=== PATIENT | female | born 1975 | race Caucasian/White ===

== ENCOUNTER 2023-06-25 08:23 | Inpatient (IN) | payer BC ==
[2023-06-25] MEDS ORDERED: MORPHINE 4 MG/ML SYR ONE ×2 (08:49→10:57)
[2023-06-25] MEDS ORDERED: ONDANSETRON 4 MG/2 ML VIAL ONE ×3 (08:49→21:33)
[2023-06-25] MEDS ORDERED: NA CHLORIDE 0.9% 1,000 ML ONE ×2 (08:49→10:11)
[2023-06-25 09:02] LABS: Absolute Lymphocytes (CBC) 0.9 K/uL (0.7-4.9); Hematocrit 41.6 % (36.0-45.0); Lymphocytes % 4.5 % (15.3-44.8); MCV 78.6 fL (80-100); MPV 8.3 fL (7.6-11.3); RBC Red Blood Cell Count 5.29 M/uL (3.86-4.86)
[2023-06-25 09:22] LABS: Bilirubin Total 0.6 mg/dL (0.2-1.0); Potassium 3.7 mEq/L (3.5-5.1); Protein, Total 8.3 g/dL (6.4-8.2)
--- NOTE | 2023-06-25 09:29 | RAD REPORT ---
EXAM DESCRIPTION: CT - Stone Protocol - 06/25/2023 8:56 am CLINICAL HISTORY: Flank pain. FLANK PAIN COMPARISON: No comparisons TECHNIQUE: Axial images were obtained without oral or IV contrast. Lack of contrast limits solid org an and vascular assessment. The [id number] spans the entirety of the system partially obscuring uppermost abdomen and lung bases. Coronal reformatted images were obtained and reviewed. All CT scans are performed using dose optimization technique as appropriate and may include automated exposure control or mA/KV adjustment according to patient size. FINDINGS: The lower lung fay are clear. Imaged portions of the liver and spleen show no suspicious findings on non-contrast imaging. The panc reas and adrenal glands are normal. No pathologic lymphadenopathy in the abdomen or pelvis. 5 mm stone is present at the right UVJ resulting in moderate right hydronephrosis and hydroureter. Ad ditional small calculus inferior calyx right kidney. There is a large left renal pelvis stone present measuring 19 mm. Mild left hydronephrosis. No bowel obstruction, free air, free fluid or abscess. Normal appendix noted. No significant bony abnormality. IMPRESSION: 5 mm stone right UVJ with moderate right hydronephrosis. 19 mm stone left renal pelvis resulting in mild left hydronephrosis.
[2023-06-25 09:48] LABS: Blood Morphology Comment NOT SEEN (NOT SEEN); Platelet Estimate ADEQ; White Blood Cell Scan OK (OK)
[2023-06-25 10:22] LABS: Specific Gravity 1.013 (1.005-1.030)
[2023-06-25 11:22] LABS: Specific Gravity 1.013 (1.005-1.030); Urine Bacteria >50 /HPF (<20); Urine Bilirubin NEGATIVE (Negative); Urine Blood 3+ (OVER) (Negative); Urine Clarity Extremely Turbid (Clear); Urine Color Light-Orange (Yellow); Urine Glucose NEGATIVE (Negative); Urine Mucus Slight /HPF (None Seen); Urine Protein 2+ (Negative); Urine RBC >50 /HPF (None Seen); Urine Urobilinogen Normal (Normal)
[2023-06-25] MEDS ORDERED: CEFTRIAXONE 1000 MG/VIAL ONE ×2 (11:44→22:40)
--- NOTE | 2023-06-25 12:00 | ER ---
Nurse's Notes [facility] Name: Misael Agudelo Age: 47 yrs Sex: Female : 1975 Arrival Date: 06/25/2023 Time: 08:23 Bed 13 Private MD: Diagnosis: UTI/ Urinary tract infection, site not specified;Hydronephrosis with renal and ureteral calculous obstruction Presentation: 06/25 08:32 Chief complaint: Patient states: right flank pain since yesterday, + hx of kidney iw stones, +vomiting. Coronavirus screen: At this time, the client does not indicate any symptoms associated with coronavirus-19. Ebola Screen: Patient negative for fever greater than or equal to 101.5 degrees Fahrenheit, and additional compatible Ebola Virus Disease symptoms Patient denies exposure to infectious person. Patient denies travel to an Ebola-affected area in the 21 days before illness onset. No symptoms or risks identified at this time. Initial Sepsis Screen: Does the patient meet any 2 criteria? No. Patient's initial sepsis screen is negative. Does the patient have a suspected source of infection? No. Patient's initial sepsis screen is negative. Risk Assessment: Do you want to hurt yourself or someone else? Patient reports no desire to harm self or others. Onset of symptoms was June 24, 2023. 08:32 Method Of Arrival: Ambulatory iw 08:32 Acuity: MAURO 3 iw Triage Assessment: 09:06 General: Appears uncomfortable, Behavior is cooperative, appropriate for age, anxious. bp Pain: Complains of pain in right flank. EENT: No deficits noted. Neuro: No deficits noted. Cardiovascular: No deficits noted. Respiratory: No deficits noted. GI: No signs and/or symptoms were reported involving the gastrointestinal system. : Reports pain in right flank(s). Derm: No deficits noted. Musculoskeletal: No deficits noted. Historical: - Allergies: 08:34 No Known Allergies; iw - Home Meds: 08:34 None [Active]; iw - PMHx: 08:34 None; iw - PSHx: 08:34 section; iw - Immunization history:: Client reports receiving the 2nd dose of the Covid vaccine. - Social history:: Smoking status: Patient denies any tobacco usage or history of. Screenin:06 [facility] ED Fall Risk Assessment (Adult) History of falling in the last 3 months, bp including since admission No falls in past 3 months (0 pts). Abuse screen: Denies threats or abuse. Denies injuries from another. Nutritional screening: No deficits noted. Tuberculosis screening: No symptoms or risk factors identified. Assessment: 09:06 General: SEE TRIAGE NOTE. bp 09:58 Reassessment: Patient appears in no apparent distress at this time. Patient is alert, bp oriented x 3, equal unlabored respirations, skin warm/dry/pink. 11:44 Reassessment: No changes from previously documented assessment. Patient is alert, bp oriented x 3, equal unlabored respirations, skin warm/dry/pink. 13:46 Reassessment: Patient appears in no apparent distress at this time. Patient is alert, bp oriented x 3, equal unlabored respirations, skin warm/dry/pink. Vital Signs: 08:34 BP 149 / 98; Pulse 90; Resp 16; Temp 98.2; Pulse Ox 99% ; Weight 81.65 kg; Height 5 ft. iw 3 in. ; Pain 6/10; 09:58 BP 145 / 80; Pulse 83; Resp 16; Pulse Ox 99% ; bp 10:59 Pulse 75; Resp 16; Pulse Ox 97% ; bp 13:00 BP 120 / 86; Pulse 86; Resp 16; Pulse Ox 97% ; bp 08:34 Body Mass Index 31.89 (81.65 kg, 160.02 cm) iw 08:34 Pain Scale: Adult iw ED Course: 08:23 Patient arrived in ED. im 08:25 Enio Tanner, TACO is PHCP. pm1 08:25 Steven English DO is Attending Physician. pm1 08:34 Triage completed. iw 08:34 Arm band placed on. iw 08:42 Haris Simeon, RN is Primary Nurse. bp 08:50 CBC with Diff Sent. aw1 08:50 CMP Sent. aw1 08:50 Lipase Sent. aw1 08:50 Inserted saline lock: 22 gauge in right forearm, using aseptic technique. aw1 08:57 CT Stone Protocol In Process Unspecified. EDMS 09:06 Patient has correct armband on for positive identification. Bed in low position. Call bp light in reach. Side rails up X2. Adult w/ patient. 10:19 Urine collected: clean catch specimen, kim colored. aw1 11:58 Brad Segura MD is Hospitalizing Provider. pm1 15:55 No provider procedures requiring assistance completed. Patient admitted, IV remains in bp place. Administered Medications: 08:54 Drug: NS 0.9% IV 1000 ml Route: IV; Rate: 1 bolus; Site: right forearm; bp 10:49 Follow up: IV Status: Completed infusion; IV Intake: 1000ml bp 08:55 Drug: Ondansetron IVP 4 mg Route: IVP; Site: right forearm; bp 10:49 Follow up: Response: No adverse reaction bp 08:55 Drug: morphine IVP or IV 2 mg Route: IVP; Infused Over: 4 mins; Site: right forearm; bp 10:49 Follow up: Response: No adverse reaction bp 10:07 Drug: NS 0.9% IV 1000 ml Route: IV; Rate: 1000 ml; Site: right forearm; bp 10:49 Drug: morphine IVP or IV 4 mg Route: IVP; Infused Over: 4 mins; Site: right forearm; bp 11:33 Drug: Ondansetron IVP 4 mg Route: IVP; Site: right forearm; bp 11:39 Drug: Rocephin IV 1 grams Route: IV; Rate: calculated rate; Site: right forearm; bp Medication: 09:06 VIS not applicable for this client. bp Intake: 10:49 IV: 1000ml; Total: 1000ml. bp Outcome: 12:00 Decision to Hospitalize by Provider. pm1 15:55 Admitted to Med/surg accompanied by tech, family with patient, via wheelchair, room bp 230, with chart, Report called to MOSES SHAFER 15:55 Condition: stable 15:55 Instructed on the need for admit. 16:33 Patient left the ED. iw Signatures: Dispatcher [employer] EDMS Alia Jimenez RN RN iw Enio Tanner, TRACING LATHE SET UP OPERATOR TRACING LATHE SET UP OPERATOR pm1 Haris Simeon RN RN bp Ellyn Echols Alyssa aw1 Corrections: (The following items were deleted from the chart) 08:53 08:50 Inserted saline lock: 20 gauge in right forearm, using aseptic technique. aw1 aw1
--- NOTE | 2023-06-25 12:00 | EDPHYS ---
Physician Documentation [facility] Name: Misael Agudelo Age: 47 yrs Sex: Female : 1975 Arrival Date: 06/25/2023 Time: 08:23 Bed 13 Private MD: ED Physician Steven English HPI: 06/25 08:33 This 47 yrs old Female presents to ER via Unassigned with complaints of Low Back Pain - pm1 kidney stones. 08:33 The patient presents with pain that is acute, with no known mechanism of injury. The pm1 symptoms are located in the low back, right flank. The pain radiates to the right lower abdomen. The problem was sustained Similar to prior kidney stones in the past. Onset: The symptoms/episode began/occurred last night. Modifying factors: The patient symptoms are alleviated by nothing, the patient symptoms are aggravated by nothing. Associated signs and symptoms: Pertinent positives: hematuria, nausea. Severity of symptoms: in the emergency department the symptoms are actually worse. The patient has experienced similar episodes in the past, today's symptoms are similar, to previous kidney stones. The patient has not recently seen a physician. Historical: - Allergies: 08:34 No Known Allergies; iw - Home Meds: 08:34 None [Active]; iw - PMHx: 08:34 None; iw - PSHx: 08:34 section; iw - Immunization history:: Client reports receiving the 2nd dose of the Covid vaccine. - Social history:: Smoking status: Patient denies any tobacco usage or history of. ROS: 08:33 Constitutional: Negative for fever, chills, and weight loss, Cardiovascular: Negative pm1 for chest pain, palpitations, and edema, Respiratory: Negative for shortness of breath, cough, wheezing, and pleuritic chest pain. 08:33 MS/Extremity: Negative for injury and deformity, Skin: Negative for injury, rash, and discoloration, Neuro: Negative for headache, weakness, numbness, tingling, and seizure. 08:33 Abdomen/GI: Positive for nausea. 08:33 Back: Positive for flank pain, on the right. 08:33 : Positive for hematuria. 08:33 All other systems are negative. Exam: 08:33 Constitutional: This is a well developed, well nourished patient who is awake, alert, pm1 and in no acute distress. Head/Face: Normocephalic, atraumatic. 08:33 Skin: Warm, dry with normal turgor. Normal color with no rashes, no lesions, and no evidence of cellulitis. MS/ Extremity: Pulses equal, no cyanosis. Neurovascular intact. Full, normal range of motion. 08:33 Cardiovascular: Exam negative for acute changes. 08:33 Respiratory: Exam negative for acute changes, respiratory distress, shortness of breath. 08:33 Abdomen/GI: Exam negative for acute changes. 08:33 Back: CVA tenderness, is noted on the right. 08:33 Neuro: Exam negative for acute changes, Orientation: is normal, Mentation: is normal, Gait: is steady, at a normal pace, without difficulty. Vital Signs: 08:34 BP 149 / 98; Pulse 90; Resp 16; Temp 98.2; Pulse Ox 99% ; Weight 81.65 kg; Height 5 ft. iw 3 in. ; Pain 6/10; 09:58 BP 145 / 80; Pulse 83; Resp 16; Pulse Ox 99% ; bp 10:59 Pulse 75; Resp 16; Pulse Ox 97% ; bp 13:00 BP 120 / 86; Pulse 86; Resp 16; Pulse Ox 97% ; bp 08:34 Body Mass Index 31.89 (81.65 kg, 160.02 cm) iw 08:34 Pain Scale: Adult iw MDM: 08:26 Patient medically screened. pm1 08:37 Data reviewed: vital signs. pm1 08:37 I considered the following discharge prescriptions or medication management in the pm1 emergency department Medications were administered in the Emergency Department. See JAN. 10:10 ED course: Patient's pain well controlled. Pending IV fluid administration and pm1 urinalysis prior to disposition. 11:43 Counseling: I had a detailed discussion with the patient and/or guardian regarding: the pm1 historical points, exam findings, and any diagnostic results supporting the discharge/admit diagnosis, lab results, radiology results, the need for further work-up and treatment in the hospital. 11:56 Management of patient was discussed with the following: Director Drug: Dr Roth. Will pm1 see patient. Would like EKG, NPO, IV fluids and Antibiotics. Admit to the hospitalist. 11:56 Differential diagnosis: ureteral calculous, renal calculous, UTI, appendicitis. pm1 12:05 Management of patient was discussed with the following: Hospitalist: Colton NOVA. Will see pm1 the patient. 06/25 08:33 Order name: CBC with Diff; Complete Time: 09:53 pm1 06/25 08:33 Order name: CMP; Complete Time: 09:30 pm1 06/25 08:33 Order name: Lipase; Complete Time: 09:30 pm1 06/25 08:33 Order name: Test, Urine; Complete Time: 10:30 pm06/25 08:33 Order name: Urinalysis w/ reflexes; Complete Time: 11:24 pm1 06/25 09:06 Order name: CBC Smear Scan; Complete Time: 09:53 EDID 06/25 11:25 Order name: Urine Culture EDID 06/25 12:31 Order name: CBC with Automated Diff [facility] 06/25 12:31 Order name: CBC with Automated Diff [facility] 06/25 12:31 Order name: Comprehensive Metabolic Panel [facility] 06/25 12:31 Order name: Comprehensive Metabolic Panel [facility] 06/25 12:31 Order name: Magnesium [facility] 06/25 12:31 Order name: Magnesium EDID 06/25 12:31 Order name: Phosphorus EDID 06/25 12:31 Order name: Phosphorus [facility] 06/25 08:33 Order name: CT Stone Protocol; Complete Time: 09:30 pm1 06/25 12:31 Order name: CONS Physician Consult [facility] 06/25 12:31 Order name: NPO [facility] 06/25 13:13 Order name: EKG; Complete Time: 13:14 pm06/25 08:33 Order name: IV Saline Lock; Complete Time: 08:50 pm06/25 08:33 Order name: Labs collected and sent; Complete Time: 08:50 pm06/25 13:13 Order name: EKG - Nurse/Tech; Complete Time: 14:02 pm1 EC:34 Rate is 84 beats/min. Rhythm is regular, Normal Sinus Rhythm. QRS [place] is Normal. GA pm1 interval is normal. QRS interval is normal. QT interval is normal. No Q waves. T waves are Normal. No ST changes noted. Clinical impression: Normal ECG. Administered Medications: 08:54 Drug: NS 0.9% IV 1000 ml Route: IV; Rate: 1 bolus; Site: right forearm; bp 10:49 Follow up: IV Status: Completed infusion; IV Intake: 1000ml bp 08:55 Drug: Ondansetron IVP 4 mg Route: IVP; Site: right forearm; bp 10:49 Follow up: Response: No adverse reaction bp 08:55 Drug: morphine IVP or IV 2 mg Route: IVP; Infused Over: 4 mins; Site: right forearm; bp 10:49 Follow up: Response: No adverse reaction bp 10:07 Drug: NS 0.9% IV 1000 ml Route: IV; Rate: 1000 ml; Site: right forearm; bp 10:49 Drug: morphine IVP or IV 4 mg Route: IVP; Infused Over: 4 mins; Site: right forearm; bp 11:33 Drug: Ondansetron IVP 4 mg Route: IVP; Site: right forearm; bp 11:39 Drug: Rocephin IV 1 grams Route: IV; Rate: calculated rate; Site: right forearm; bp Disposition: 09:47 PA/OPERATING ROOM TECH's history reviewed, patient interviewed, and examined. HPI: 47-year-old female ms3 presents for right-sided flank pain that began yesterday. Patient rates her pain a 6/10 patient endorses nausea and vomiting. Patient denies alleviating or inciting factors. My personal exam of patient reveals: On exam patient is alert and orient x4, no apparent distress, nontoxic-appearing. Heart rate and rhythm are regular without murmurs rubs or gallops. Lungs are clear to auscultation bilaterally. Abdomen is nontender to palpation with bowel sounds present. Skin is dry and without rashes. Disposition Summary: 06/25/23 12:00 Hospitalization Ordered Hospitalization Status: Inpatient Admission pm1 Provider: Brad Segura pm1 Location: Telemetry/MedSurg (Inpatient) pm1 Condition: Stable pm1 Problem: new pm1 Symptoms: have improved pm1 Bed/Room Type: Standard pm1 Room Assignment: 230(06/25/23 15:05) dw Diagnosis - UTI/ Urinary tract infection, site not specified pm1 - Hydronephrosis with renal and ureteral calculous obstruction pm1 Forms: - Medication Reconciliation Form pm1 - SBAR form pm1 Signatures: Dispatcher [employer] Marylu Rodriguez RN RN dw Williams, Irene, RN RN iw Marinas, Patrick, NP OPERATING ROOM TECH pm1 Haris Simeon, RN RN bp Steven English, DO ms3 Corrections: (The following items were deleted from the chart) 11:56 11:43 Management of patient was discussed with the following: Director Drug: Dr Roth. pm1 Will see patient. Would like EKG, NPO, IV fluids and Antibiotics. Admit to the hospitalist. pm1 15:05 12:00 pm1 dw
[2023-06-25] MEDS ORDERED: ONDANSETRON 4 MG/2 ML VIAL IV PRN (12:25)
[2023-06-25] MEDS ORDERED: ACETAMINOPHEN 500 MG TAB PO PRN (12:25)
[2023-06-25] MEDS ORDERED: HYDROMORPHONE HCL 0.5 MG/0.5 ML INJ IV PRN (12:37)
[2023-06-25] MEDS: Ringers Lactate 1,000 ML IV SCH ×2 (13:00→23:00)
[2023-06-25 16:39] VITALS: BMI 36.4
[2023-06-25] MEDS: HYDROCODONE/APAP 7.5/325 MG TAB PO PRN (16:50)
[2023-06-25] MEDS ORDERED: CEFAZOLIN 1 GM in NA CHLORIDE 0.9% 50 ML IVPB SCH (17:00)
[2023-06-25] MEDS ORDERED: ACETAMINOPHEN 500 MG TAB PO ONE (17:17)
[2023-06-25] MEDS ORDERED: NA CHLORIDE 0.9% 500 ML IV ONE (19:26)
[2023-06-25] MEDS ORDERED: NA CHLORIDE 0.9% 500 ML ONE (19:45)
[2023-06-25] MEDS ORDERED: NACHLORIDE 0.45% 1,000 ML IV ONE (19:45)
[2023-06-25] MEDS ORDERED: SODIUM BICARB 50 MEQ/50ML VIAL ONE (19:47)
[2023-06-25] MEDS: NACHLORIDE 0.45% 1,000 ML with NA BICARB 8.4% 50 MEQ IV SCH ×2 (20:36)
--- NOTE | 2023-06-25 20:53 | P.CNS ---
Date of Consult: 06/25/23 Reason for Consult: bilateral ureteral obstruction Requesting Physician: Steven English Chief Complaint: Right flank pain History of Present Illness: 47-year-old woman with history of left flank pain that radiated into her left lower quadrant about 6 months ago presents with right flank pain that radiates to the right lower quadrant that began last night. She has had some blood in the urine and has been nauseous. She denied any fever or chills until this evening. 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 Past medical history: None Past surgical history: No known drug allergies Social history: No smoking Examination: @17:20 temperature 103.8, pulse 86, respirations 16, 97% on room air Reasonably well-appearing, well-developed, well-nourished, no acute distress Alert, awake, oriented x3 No dyspnea or sign of respiratory distress No cervical/supraclavicular adenopathy or thyromegaly Abdomen soft, nontender, nondistended Extremities without edema or tenderness, no Homans' sign Lying in the hospital bed covered in a blanket 06/25/2023 WBC 20, hemoglobin 13.5, platelets 281, creatinine 1.33, UA micro 1+ nitrites, 3+ leukocyte Estrace, greater than 50 WBCs 06/25/2023 CT abdomen and pelvis without contrast: I reviewed the images of the CT directly and observe the presence of bilateral hydronephrosis, right greater than left, with a 5 mm distal right ureteral, near UVJ, calculus causing hydroureteronephrosis associated with a 4 mm nonobstructing right renal calculus, and a 19 mm left renal pelvic calculus obstructing at the UPJ. Mild right perinephric stranding. Assessment and recommendation: 47-year-old woman with no significant past medical history with bilateral renal calculus related obstruction causing hydronephrosis on the left and hydroureteronephrosis on the right secondary to a 5 mm right UVJ and 19 mm left UPJ calculus with complicated UTI in the absence of signs of severe sepsis or shock but with signs of acute kidney injury. -Recommend prompt operative management and decompression via cystoscopy with bilateral retrograde pyelography and stent placement bilaterally to prevent progression to sepsis and or shock and to relieve the suspected AUGUSTO -I counseled the patient on the indication for the procedure as well as the risks as follows to include urethral stricture, ureteral injury. Side effects of stent pain/discomfort and irritative LUTS was also discussed. Potential need for percutaneous nephrostomy tube placement was also discussed. -EKG stat Allergies No Known Allergies Allergy (Unverified 06/25/23 12:34) Home Medications: NK [No Home Meds] 06/25/23 - Past Medical/Surgical History Diabetic: No - Social History Alcohol use: No CD- Drugs: No Caffeine use: Yes Place of Residence: Home Physical Examination Temp Pulse Resp BP Pulse Ox 97.3 F 86 16 120/86 97 06/25/23 18:20 06/25/23 17:22 06/25/23 17:50 06/25/23 17:22 06/25/23 17:50 Laboratory Data (last 24 hrs) 06/25/23 08:50: Sodium 137, Potassium 3.7, BUN 16, Creatinine 1.33 H, Glucose 127 H, Total Bilirubin 0.6, AST 18, ALT 28, Alkaline Phosphatase 77, Lipase 30 06/25/23 08:50: WBC 20.00 H, Hgb 13.5, Hct 41.6, Plt Count 281 - Problems (1) Hydronephrosis, bilateral Current Visit: Yes Status: Acute (2) Ureterolithiasis Current Visit: Yes Status: Acute (3) Complicated UTI (urinary tract infection) Current Visit: Yes Status: Acute (4) AUGUSTO (acute kidney injury) Current Visit: Yes Status: Acute Critical Care: No Time Spent Managing Pts care (In Minutes): 45
[2023-06-25] MEDS ORDERED: propofoL 200 MG/20 ML VIAL IV ONE (21:32)
[2023-06-25] MEDS ORDERED: MIDAZOLAM HCL 2 MG/2 ML INJ ONE (21:32)
[2023-06-25] MEDS ORDERED: FENTANYL CITR 100 MCG/2 ML ONE (21:32)
[2023-06-25] MEDS ORDERED: LIDOCAINE 1% MPF 5 ML VIAL ONE (21:33)
[2023-06-25] MEDS ORDERED: KETOROLAC 30 MG/ML INJ ONE (21:33)
[2023-06-25] MEDS ORDERED: dexAMETHasone 10 MG/ML VIAL ONE (21:33)
[2023-06-25] MEDS ORDERED: Ringers Lactate 1,000 ML IV ONE (21:42)
[2023-06-25] MEDS ORDERED: NA CIT/CITRIC AC 30 ML ORAL UDC ONE (21:44)
[2023-06-25] MEDS ORDERED: PROMETHAZINE INJ 25 MG/ML AMP ONE (21:46)
--- NOTE | 2023-06-25 22:47 | P.OP ---
Date of Service: 06/25/23 Preoperative diagnosis: Right ureterolithiasis Right nephrolithiasis Left ureterolithiasis Bilateral hydronephrosis Complicated UTI AUGUSTO Postoperative diagnoses: Same Principal procedures: Cystoscopy Bilateral retrograde pyelography Bilateral 6 x 24 Armenian ureteral stent placement Indication for procedure: 47-year-old woman with no significant past medical history with bilateral renal calculus related obstruction causing hydronephrosis on the left and hydroureteronephrosis on the right secondary to a 5 mm right UVJ calculus and 19 mm left UPJ calculus, with associated 5 mm right renal calculus nonobstructing, with complicated UTI in the absence of signs of severe sepsis or shock but with signs of acute kidney injury and complicated UTI with fever higher than 103. Findings and Operative Technique The patient was consented in the preoperative holding area before being transferred to the operative suite where general anesthesia was induced using an LMA. She was given ceftriaxone 1 g IV antimicrobial prophylaxis and pneumoboots were provided for DVT prophylaxis. She was placed in the lithotomy position, padded and secured to the table appropriately. Her genitalia was prepped with Hibiclens and draped in standard fashion. The case was begun using a 22 Armenian rigid cystoscope to traverse the urethra and into the bladder with ease. Once in the bladder, significant cloudy urine was encountered and so we confirm that a urine culture had previously been sent, which it had. I then decompressed her bladder of that cloudy urine before irrigating her bladder in order to clarify the tissues. The right ureteral orifice was then noted to be somewhat posterior laterally displaced but was cannulated using the tip of the 5 Armenian ureteral access catheter. A retrograde pyelogram was then performed. Right retrograde pyelography: Using a 70: 30 mixture of Omnipaque and saline, contrast was injected via the lumen of the 5 Armenian ureteral access catheter and did propagate up the distal into the mid and proximal ureter with evidence of ureteral nephrosis and mild to moderate hydronephrosis. Once the contrast marked the entry into the renal pelvis, I then utilized a sensor wire to navigate beyond the stone up the ureter and coiled within the putative upper pole of the right kidney. I then passed a 6 Armenian by 24 cm double-J ureteral stent over the wire coiling it within the upper pole of the kidney is observed fluoroscopically with 1 cystoscopically observed within the bladder. I then turned my attention to identify her left ureteral orifice, which was similarly difficult to identify because of its significantly posterior and more medial localization. However once the orifice was potentially identified, we used the tip of a sensor wire to intubate it and then passed over it a 5 Armenian ureteral access catheter. Left retrograde pyelography: Using a 70: 30 mixture of Omnipaque and saline, contrast was injected via the lumen of the 5 Armenian ureteral access catheter and did propagate up the distal into the mid and proximal ureter on the left without significant ureteral nephrosis until an obstruction was encountered at the UPJ with associated mild hydronephrosis on the left. I then passed a sensor wire via the 5 Armenian ureteral access catheter and did observe it coil within the upper pole of the left kidney before removing the 5 Armenian ureteral access catheter and passing a another 6 x 24 cm double-J ureteral stent over the wire coiling it within the upper pole of the left kidney with a coil cystoscopically formed within her bladder. I then decompressed her bladder of fluid and urine, and remove the cystoscope. The patient was then taken out of the lithotomy position, awakened from general anesthesia, transferred to a stretcher, and then transferred to the recovery room in good condition. Complications: None Estimated blood loss negligible Discharge disposition: As the left renal calculus is indeed radiopaque, this may be amenable to ESWL. We will need to assess the CT Hounsfield units to determine the likelihood of success with fragmentation of that 19 mm calculus on the left. The right ureteral calculus however is radiolucent; so she will require definitive management with ureteroscopy and laser lithotripsy on the right.
[2023-06-25 23:22] VITALS: O2SAT 95
[2023-06-26] MEDS ORDERED: NACHLORIDE 0.45% 1,000 ML IV ONE (04:18)
[2023-06-26] MEDS ORDERED: SODIUM BICARB 50 MEQ/50ML VIAL ONE (04:25)
[2023-06-26 04:41] LABS: Absolute Lymphocytes (CBC) 0.5 K/uL (0.7-4.9); Lymphocytes % 3.4 % (15.3-44.8); MCV 79.2 fL (80-100); MPV 7.7 fL (7.6-11.3); RBC Red Blood Cell Count 4.67 M/uL (3.86-4.86)
[2023-06-26 05:03] LABS: Bilirubin Total 0.3 mg/dL (0.2-1.0); Magnesium 2.2 mg/dL (1.6-2.4); Potassium 3.6 mEq/L (3.5-5.1)
[2023-06-26 05:24] LABS: Phosphorus 1.5 mg/dL (2.5-4.9)
[2023-06-26] MEDS ORDERED: POTASSIUM CL SA 10 MEQ TAB PO ONE (05:34)
[2023-06-26] MEDS: POTASS/SODIUM PHOSPHATE 1 PKT POWD.PACK PO SCH ×5 (05:48→16:10)
[2023-06-26] MEDS: NACHLORIDE 0.45% 1,000 ML with NA BICARB 8.4% 50 MEQ IV SCH ×2 (05:49)
--- NOTE | 2023-06-26 08:21 | RAD REPORT ---
EXAM DESCRIPTION: RAD - Urethrocystogrphy Retrograde - 06/25/2023 10:49 pm CLINICAL HISTORY: BILAT STENTS COMPARISON: Stone Protocol dated 06/25/2023 FINDINGS/IMPRESSION: Nine intraoperative fluoroscopic images were submitted showing cannulation of t he right and left ureter and placement of ureteral stents. Bilateral renal calculi noted. Fluoro time: 13 seconds Cumulative dose: 6.3 mGy
[2023-06-26] MEDS ORDERED: CEFTRIAXONE 1,000 MG in NA CHLORIDE 0.9% 50 ML IVPB SCH (09:00)
[2023-06-26] MEDS ORDERED: ENOXAPARIN 40 MG/0.4 ML SQ SCH (09:00)
[2023-06-26 09:05] VITALS: TEMP 98.4
--- NOTE | 2023-06-26 12:28 | P.HP ---
Certification for Inpatient Patient admitted to: Inpatient With expected LOS: >2 Midnights Patient will require the following post-hospital care: None Practitioner: I am a practitioner with admitting privileges, knowledge of patient current condition, hospital course, and medical plan of care. Services: Services provided to patient in accordance with Admission requirements found in Title 42 Section 412.3 of the Code of Federal Regulations Patient History Date of Service: 06/25/23 Reason for admission: Right flank pain History of Present Illness: Patient is a 47-year-old female who came to the hospital with flank tenderness. Patient was seen in the emergency room and patient had a large kidney stone. Patient is having fever and tenderness. She will be admitted to the hospital for IV antibiotic therapy and pain control. Patient will be seen by urology later this evening. Allergies No Known Allergies Allergy (Unverified 06/25/23 12:34) Home Medications: NK [No Home Meds] 06/25/23 - Past Medical/Surgical History Has patient received pneumonia vaccine in the past: No Diabetic: No Past Medical History: Patient denies medical history Past Surgical History: Patient denies surgical history - Family History Father Family History: Reviewed- Non-Contributory - Social History Smoking Status: Former smoker Alcohol use: No CD- Drugs: No Caffeine use: Yes Place of Residence: Home Review of Systems 10-point ROS is otherwise unremarkable Physical Examination - Vital Signs Temperature: 98.4 F Blood Pressure: 134/77 Pulse: 73 Respirations: 16 Pulse Ox (%): 95 - Physical Exam General: Alert, In no apparent distress, Oriented x3 HEENT: Atraumatic, PERRLA, Mucous membr. moist/pink, EOMI, Sclerae nonicteric Neck: Supple, 2+ carotid pulse no bruit, No LAD, Without JVD or thyroid abnormality Respiratory: Clear to auscultation bilaterally, Normal air movement Cardiovascular: Regular rate/rhythm, Normal S1 S2 Gastrointestinal: Normal bowel sounds, No rebound, No guarding, Tenderness Musculoskeletal: No clubbing, No swelling, No tenderness Integumentary: No rashes Neurological: Normal gait, Normal speech, Normal strength at 5/5 x4 extr, Normal tone, Sensation intact, Cranial nerves 3-12 intact, Normal affect Lymphatics: No axilla or inguinal lymphadenopathy Assessment & Plan - Problems (Diagnosis) (1) Complicated UTI (urinary tract infection) Current Visit: Yes Status: Acute (2) Hydronephrosis, bilateral Current Visit: Yes Status: Acute (3) Ureterolithiasis Current Visit: Yes Status: Acute - Plan Plan: 1. IV fluids along with antipyretics 2. Pain control 3. IV antibiotics 4. Urology consultation 5. N.p.o. until after intervention 6. GI and DVT prophylaxis Discharge Plan: Home Plan to discharge in: Greater than 2 days - Advance Directives Does patient have a Living Will: No Does patient have a Durable POA for Healthcare: No - Code Status/Comfort Care Code Status Assessed: Yes Code Status: Full Code Critical Care: No Time Spent Managing PTS Care (In Minutes): 45
[2023-06-26] MEDS ORDERED: NACHLORIDE 0.45% 1,000 ML with NA BICARB 8.4% 50 MEQ IV SCH ×2 (12:30)
--- NOTE | 2023-06-26 12:34 | P.DS ---
Discharge Date: 06/26/23 Disposition: ROUTINE DISCHARGE Discharge Condition: GOOD Reason for Admission: Right flank pain - Problems (1) Complicated UTI (urinary tract infection) Current Visit: Yes Status: Acute (2) Hydronephrosis, bilateral Current Visit: Yes Status: Acute (3) Ureterolithiasis Current Visit: Yes Status: Acute Brief History of Present Illness: Patient is a 47-year-old female who came to the hospital with flank tenderness. Patient was seen in the emergency room and patient had a large kidney stone. Patient is having fever and tenderness. She will be admitted to the hospital for IV antibiotic therapy and pain control. Patient will be seen by urology later this evening. Hospital Course: Patient is doing well. Pt denies any new complaints. Patient continues to improve. At this time, patient is stable for discharge with outpatient follow- up. Patient will follow-up with urology in 2 to 4 weeks. She will need the J stent removed at that time. Continue with monitoring nephrolithiasis and she can collect the kidney stone and sent to pathology for further evaluation. Vital Signs/Physical Exam: Temp Pulse Resp BP Pulse Ox 98.4 F 73 16 134/77 95 06/26/23 12:27 06/26/23 12:27 06/26/23 12:27 06/26/23 12:27 06/26/23 12:27 General: Alert, In no apparent distress, Oriented x3 Laboratory Data at Discharge: WBC 14.40 thou/uL (4.3-10.9) H 06/26/23 04:34 Hgb Cancelled 06/26/23 07:40 Hct Cancelled 06/26/23 07:40 Plt Count 213 thou/uL (152-406) 06/26/23 04:34 Sodium 139 mEq/L (136-145) 06/26/23 04:34 Potassium 3.6 mEq/L (3.5-5.1) 06/26/23 04:34 BUN 12 mg/dL (7-18) 06/26/23 04:34 Creatinine 0.89 mg/dL (0.55-1.02) 06/26/23 04:34 Glucose 148 mg/dL (74-106) H 06/26/23 04:34 Phosphorus 1.5 mg/dL (2.5-4.9) L* 06/26/23 04:34 Magnesium 2.2 mg/dL (1.6-2.4) 06/26/23 04:34 Total Bilirubin 0.3 mg/dL (0.2-1.0) 06/26/23 04:34 AST 15 U/L (15-37) 06/26/23 04:34 ALT 21 U/L (13-56) 06/26/23 04:34 Alkaline Phosphatase 62 U/L (45-117) 06/26/23 04:34 Lipase 30 U/L (13-75) 06/25/23 08:50 Home Medications: Cefdinir [Cefdinir*] 300 mg PO BID #20 cap 06/26/23 Hydrocodone 7.5/APAP 325 [[place] 7.5/325 mg*] 1 tab PO Q6H PRN #30 tab 06/26/23 New Medications: Cefdinir [Cefdinir*] 300 mg PO BID #20 cap Hydrocodone 7.5/APAP 325 [[place] 7.5/325 mg*] 1 tab PO Q6H PRN #30 tab PRN Reason: Pain Scale 5-7 (Moderate) Physician Discharge Instructions: -DC IV and DC home -Follow-up with PCP in 1 to 2 weeks -Follow-up with Urology in 1 to 2 weeks -Please call Dr. Segura at [phone] if any questions regarding hospital stay -Please call nursing station at [phone] if any nursing or medication questions -Return to the emergency room if symptoms worsen Diet: Regular Activity: Fall precautions Followup: OOT,OOT [Primary Care Provider] - Time spent managing pt's care (in minutes): 35
--- NOTE | 2023-06-26 13:26 | EKG ---
Test Date: 2023-06-25 Test Time: 13:52:40 Relief Operator: NICOLE MEASUREMENT RESULTS: Intervals: Rate: 84 [place]: 136 QRSD: 90 QT: 342 QTc: 404 [place]: P: 49 [place]: 136 QRS: 74 T: 62 INTERPRETIVE STATEMENTS: Normal sinus rhythm Cannot rule out Anterior infarct, age undetermined Abnormal ECG No previous ECG available for comparison Electronically Signed On 06-26-23 13:24:38 CDT by Antelmo Purcell
[2023-06-26 15:27] LABS: Potassium 3.5 mEq/L (3.5-5.1)
[2023-06-26 15:34] LABS: Phosphorus 1.4 mg/dL (2.5-4.9)
[2023-06-26] MEDS ORDERED: POTASSIUM PHOS 20 MM in NA CHLORIDE 0.9% 500 ML IV ONE (16:08)
[2023-06-26] MEDS: POTASS/SODIUM PHOSPHATE 1 PKT POWD.PACK PO ONE ×2 (16:22→16:45)
[2023-06-26] MEDS: HYDROCODONE/APAP 7.5/325 MG TAB PO PRN (16:44)
[2023-06-26 16:56] VITALS: BP 151/82
== END 2023-06-26 17:48 | disposition home or self-care (01) | DRG 661 ==
LOC: ER 08:23 → ERHOLD 12:25 → 2ND 15:47
PROVIDERS: ADMIT Hospitalist; ATTEND Hospitalist
PROC: BT141ZZ Fluoroscopy of Kidneys, Ureters and Bladder using Low Osmolar Contrast (ICD-10-PCS; 2023-06-25)
PROC: 0T788DZ Dilation of Bilateral Ureters with Intraluminal Device, Via Natural or Artificial Opening Endoscopic (ICD-10-PCS; principal; 2023-06-25 22:00)
DX: N13.6 Pyonephrosis (principal); R31.9 Hematuria, unspecified; N17.9 Acute kidney failure, unspecified; Z87.891 Personal history of nicotine dependence; Z79.899 Other long term (current) drug therapy
CPT/HCPCS: 36415; 51610; 74176; 74450; 76377; 80053; 81001; 81025; 83690; 83735; 84100; 84132; 85025; 87077; 87086; 87088; 87186; 93005; 96361; 96374; 96375; 99285; J0690; J0696; J1100; J1650; J2001; J2250; J2405; J2550; J2704; J3010; J7030; J7040; J7120

== ENCOUNTER 2023-07-28 06:10 | Day surgery (SDC) | payer BC ==
[2023-07-15 15:58] LABS: Protime INR 1.08
[2023-07-15 16:07] LABS: Absolute Lymphocytes (CBC) 2.6 K/uL (0.7-4.9); Hematocrit 41.9 % (36.0-45.0); Lymphocytes % 34.7 % (15.3-44.8); MCV 78.3 fL (80-100); Platelets 497 thou/uL (152-406); RBC Red Blood Cell Count 5.36 M/uL (3.86-4.86)
[2023-07-15 16:10] LABS: Potassium 3.9 mEq/L (3.5-5.1)
--- NOTE | 2023-07-15 16:15 | RAD REPORT ---
EXAM DESCRIPTION: RAD - Chest Pa And Lat (2 Views) - 07/15/2023 3:53 pm CLINICAL HISTORY: pre op for surgery Chest pain. COMPARISON: <Comparisons> FINDINGS: The lungs are clear. The heart is normal in size. No displaced fractures. IMPRESSION: No acute or concerning finding suspected. The USPSTF recommends annual screening for lung cancer with low-dose CT (LDCT) in adults aged 50 to 80 years who have a 20 pack-year smoking history and currently smoke or have quit within the past 15 years.
[2023-07-28] MEDS ORDERED: AMPICILLIN SODIUM 2 GM/VIAL VIAL ONE (06:45)
[2023-07-28] MEDS ORDERED: Ringers Lactate 1,000 ML IV ONE (06:45)
[2023-07-28] MEDS ORDERED: GENTAMICIN 100 MG/100 ML BAG 0 ML IV ONE (06:45)
[2023-07-28] MEDS ORDERED: Gentamicin Inj 200 MG in NA CHLORIDE 0.9% 100 ML IV SCH (07:00)
[2023-07-28] MEDS ORDERED: SUCCINYLCHOLINE 20 MG/ML (10 ML) IV ONE (07:24)
[2023-07-28] MEDS ORDERED: LIDOCAINE 1% MPF 5 ML VIAL ONE (07:49)
[2023-07-28] MEDS ORDERED: ROCURONIUM 50 MG/5 ML VIAL IV ONE (07:49)
[2023-07-28] MEDS ORDERED: MIDAZOLAM HCL 2 MG/2 ML INJ ONE (07:49)
[2023-07-28] MEDS ORDERED: propofoL 200 MG/20 ML VIAL IV ONE (07:49)
[2023-07-28] MEDS ORDERED: FENTANYL CITR 100 MCG/2 ML ONE (07:49)
[2023-07-28] MEDS ORDERED: KETAMINE HCL IN 0.9 % NACL 50 MG/5 ML SYRINGE IV ONE (07:50)
[2023-07-28] MEDS ORDERED: GLYCOPYRROLATE 0.2 MG/ML SYR ONE ×2 (07:57→08:52)
[2023-07-28] MEDS ORDERED: ONDANSETRON 4 MG/2 ML VIAL ONE (08:20)
[2023-07-28] MEDS ORDERED: dexAMETHasone 10 MG/ML VIAL ONE ×2 (08:20→08:21)
[2023-07-28] MEDS ORDERED: NEOSTIGMINE 1 MG/ML -10 ML VIAL ONE (08:44)
[2023-07-28 08:58] VITALS: TEMP 97
[2023-07-28] MEDS ORDERED: PHENAZOPYRIDINE 100MG TAB PO ONE ×2 (09:25→10:17)
[2023-07-28] MEDS ORDERED: HYDROCODONE/APAP 5/325 MG TAB PO PRN (09:25)
--- NOTE | 2023-07-28 10:04 | OP ---
Surgeon: ADAN WONG Preoperative Diagnoses: 1.Right obstructive ureterolithiasis. 2.Right nephrolithiasis. 3.Left nephroureterolithiasis. Postoperative Diagnoses: 1.Right obstructive ureterolithiasis. 2.Right nephrolithiasis. 3.Left nephroureterolithiasis. Principal Procedures: 1.Cystoscopy. 2.Right retrograde pyelography. 3.Right flexible followed by semi-rigid ureteroscopy with laser lithotripsy. 4.Ureteroscopic stone basketing. 5.Right ureteral stent exchange. Indication For Procedure: Ms. Agudelo presented via the emergency department with an obstructing righ t ureteral calculus and proximally obstructing left UPJ calculus. She underwent bilateral ureteral s tent placements and has been treated with antimicrobial therapy because of chronic infection observed since that time. She presents today for definitive management of her right-sided stones. Procedure In Detail: The patient was consented in the preoperative holding area before being transfe rred to the operative suite where general anesthesia was induced. She was given ampicillin 2 g and g entamicin 2-3 mg/kg IV antimicrobial prophylaxis. Pneumo boots were provided for DVT prophylaxis. S he was placed in the lithotomy position, padded and secured to the table appropriately. Her genitali a were prepped with Hibiclens and she was draped in standard fashion. The case was begun using a 22- Greek rigid cystoscope to traverse the urethra and enter her bladder. The bladder was decompressed of fluid and urine, and the ureteral stent emanating from the right ureteral orifice was grasped usin g a cold cup grasper and delivered the tip only to the meatus leaving the proximal tip within the pro ximal ureter/renal pelvis. I thus advanced a Sensor wire via the stent and coiled it within the puta tive collecting system. I removed the stent leaving the wire in place and passed a dual-lumen cathet er over the wire into the mid proximal ureter. There, I injected contrast via the second lumen of th e dual-lumen catheter to perform a retrograde pyelogram. Right retrograde pyelography: Using a 70:30 mixture of Omnipaque and saline, contrast was injected v ia the second lumen of the dual-lumen catheter and did emanate up the proximal ureter into the renal pelvis indicating appropriate localization of the wire and instruments. As a result, I then passed a [place] guidewire via the second lumen of the dual-lumen catheter and coiled alongside the Sensor sa fety wire. I then removed the dual-lumen catheter and passed a flexible ureteroscope over the Bentso n wire all the way into her collecting system. There, I surveyed the calices of the kidney including the upper pole, mid pole calyces, and lower pole calyces, both anterior and posterior until I encoun tered the 4-5 mm calculus present within the lower pole posterior calyx. Unfortunately, it was locat ed in a very difficult position hiding within the upper most corner posteriorly of that calyx in a po sition where the ureteroscope was already flexed in 3 dimensions and could not adequately target the stone with the laser. Despite attempts to use the compression pressure of the fluid with the laser t o disrupt the stone and get it to move sufficient for lithotripsy, the stone would not move. So, I t hen utilized a 1.9-Greek 0 tip Nitinol basket and attempted to disrupt the stone from its location h iding within the posterior component of the lower pole. Unfortunately, I could not even get the bask et to angle into that posterior location, it continued to deviate to the left and more anteriorly wit hin the calyx not able to grasp the stone. Even efforts to simply coil the basket within that calyx to disrupt the stone was able to slightly move it, but insufficient to be able to grab it and deliver the stone into a more favorable location. As a result, after several minutes of attempts, I failed to grasp the stone and was unable to destroy it with the laser lithotripsy, so I then backed the flex ible ureteroscope back into the renal pelvis and surveyed down the proximal into the mid and into the distal ureter before encountering the 5 mm ureteral calculus known to be present. Because of its ve ry distal ureteral location, the flexible ureteroscope was difficult to achieve sufficient dilation t o perform laser lithotripsy; so I switched to a semi-rigid ureteroscope and utilized the 270 nm laser fiber at a setting of 0.8 joules and 8 hertz to quickly fragment the stone into fragments approximat chrystal 1-2 mm each. I then utilized the basket to grasp each of those stone fragments, removed them fro m the distal ureter and sent them for chemical analysis. I then backloaded the cystoscope over the i ndwelling safety wire and was able to navigate a 6-Greek x 26 cm double-J ureteral stent over the sa fety wire successfully into the collecting system with a coil observed fluoroscopically in the kidney and 1 cystoscopically formed in the bladder. I then decompressed her bladder of fluid and urine bef ore taking the patient out of the lithotomy position. She was then awakened from general anesthesia, transferred to a stretcher, and then transferred to the recovery room in good condition. Complications: None. Discharge Disposition: She will require subsequent left-sided ESWL for the large calculus within the renal pelvis. We will then monitor the right lower pole renal calculus for growth and visibility fl uoroscopically at which point it will require targeting with ESWL unless it elects to attempt passage within the coming weeks. LANI/MODL Voice ID: [id number] Report ID: [id number]
[2023-07-28] MEDS ORDERED: HYDROCODONE/APAP 5/325 MG TAB ONE (10:18)
[2023-07-28 10:44] VITALS: BP 132/88; O2SAT 99
--- NOTE | 2023-07-28 14:44 | RAD REPORT ---
EXAM DESCRIPTION: RAD - Urethrocystogrphy Retrograde - 07/28/2023 2:25 pm CLINICAL HISTORY: RT STENT EXCHANGE COMPARISON: Urethrocystogrphy Retrograde dated 06/25/2023 FINDINGS: Total fluoro time: 0.2 minutes.
== END 2023-07-28 10:22 | disposition home or self-care (01) ==
LOC: OR 06:10
PROVIDERS: ATTEND Urology
PROC: 0T768DZ Dilation of Right Ureter with Intraluminal Device, Via Natural or Artificial Opening Endoscopic (ICD-10-PCS; 2023-07-28)
PROC: 0TC68ZZ Extirpation of Matter from Right Ureter, Via Natural or Artificial Opening Endoscopic (ICD-10-PCS; principal; 2023-07-28 07:30)
DX: N20.2 Calculus of kidney with calculus of ureter (principal)
CPT/HCPCS: 87088; 85025; 87086; 80048; 36415; 81025; 85610; 88300; 82360; 71046; 74450; 51610; 52356; J2704; J2710; J2001; J1580; J2250; J3010; J1100 ×2; J2405; J0290; J7120

== ENCOUNTER 2023-09-24 08:44 | Day surgery (SDC) | payer BC ==
[2023-09-24] MEDS ORDERED: Ringers Lactate 1,000 ML IV ONE (09:00)
[2023-09-24] MEDS ORDERED: ONDANSETRON 4 MG/2 ML VIAL ONE ×2 (09:01→11:16)
[2023-09-24] MEDS ORDERED: MIDAZOLAM HCL 2 MG/2 ML INJ ONE (09:01)
[2023-09-24] MEDS ORDERED: LIDOCAINE 1% MPF 5 ML VIAL ONE (09:01)
[2023-09-24] MEDS ORDERED: KETOROLAC 30 MG/ML INJ ONE (09:01)
[2023-09-24] MEDS ORDERED: FENTANYL CITR 100 MCG/2 ML ONE (09:01)
[2023-09-24] MEDS ORDERED: propofoL 200 MG/20 ML VIAL IV ONE (09:01)
[2023-09-24] MEDS ORDERED: ROCURONIUM 50 MG/5 ML VIAL IV ONE (09:07)
[2023-09-24] MEDS: GENTAMICIN 100 MG/100 ML BAG 0 ML IV ONE ×2 (09:15→09:18)
[2023-09-24] MEDS: AMPICILLIN SODIUM 2 GM/VIAL VIAL ONE ×2 (09:15→09:24)
[2023-09-24] MEDS ORDERED: Gentamicin Inj 200 MG in NA CHLORIDE 0.9% 100 ML IV ONE (09:15)
[2023-09-24] MEDS ORDERED: EPHEDRINE SULF 50 MG/ML VIAL ONE (09:48)
[2023-09-24] MEDS ORDERED: GLYCOPYRROLATE 0.2 MG/ML SYR ONE (10:34)
[2023-09-24] MEDS ORDERED: NEOSTIGMINE 1 MG/ML -10 ML VIAL ONE (10:36)
[2023-09-24] MEDS ORDERED: PHENAZOPYRIDINE 100MG TAB PO ONE ×2 (11:22→12:37)
[2023-09-24] MEDS ORDERED: HYDROCODONE/APAP 5/325 MG TAB PO PRN (11:22)
--- NOTE | 2023-09-24 11:26 | RAD REPORT ---
EXAM DESCRIPTION: RAD - Urethrocystogrphy Retrograde - 09/24/2023 10:49 am CLINICAL HISTORY: LITHOTRIPSY COMPARISON: Urethrocystogrphy Retrograde dated 07/28/2023 FINDINGS: Total fluoro time: 0.2 minutes
[2023-09-24] MEDS ORDERED: PROMETHAZINE INJ 25 MG/ML AMP ONE (11:28)
[2023-09-24] MEDS ORDERED: oxyBUTYnin chloride 5 MG TAB ONE (12:37)
[2023-09-24] MEDS ORDERED: HYDROCODONE/APAP 5/325 MG TAB ONE (12:38)
[2023-09-24] MEDS ORDERED: HYDROMORPHONE HCL 1 MG/ML INJ ONE (13:09)
--- NOTE | 2023-09-24 13:49 | OP ---
Surgeon: ADAN WONG Preoperative Diagnoses: 1.Large volume left nephrolithiasis. 2.Status post left extracorporeal shockwave lithotripsy. 3.Status post left ureteral stent placement. Postoperative Diagnoses: 1.Large volume left nephrolithiasis. 2.Status post left extracorporeal shockwave lithotripsy. 3.Status post left ureteral stent placement. Principal Procedures: 1.Cystoscopy with left retrograde pyelography. 2.Left ureteroscopy with laser lithotripsy, extensive. 3.Left ureteral stent exchange. Indication For Procedure: Ms. Agudelo presented to the Urology Clinic initially with an obstructing r ight ureteral calculus but was found to have a large 19 mm left UPJ calculus. She was counseled on o ptions for management of the stone to include the sandwiched [id number]-[id number] approach versus P CNL, and she elected the sandwich approach. She underwent shockwave lithotripsy, which did partially fragment the stone, but unfortunately significant residual stone burden was present due to the hard nature of the stone. As a result, she was again given the opportunity to decide to proceed with PCNL versus continuing with the sandwich approach. She elected the latter. Procedure In Detail: The patient was consented in the preoperative holding area before being transfe rred to the operative suite where general anesthesia was induced. She had been given ampicillin 2 g and gentamicin 200 mg IV antimicrobial prophylaxis, and pneumo boots were provided for DVT prophylaxi s. She was placed in the lithotomy position, padded and secured to the table appropriately, and her genitalia were prepped with Hibiclens before being draped in standard fashion. The case was begun us ing a 22-Guinean rigid cystoscope to traverse the urethra and into the bladder with ease. The bladder was decompressed of fluid and urine, and refilled with sterile saline. I grasped the tip of the zoila nt, which was emanating from the left ureteral orifice, and I delivered the tip to the meatus leaving the proximal coil of the stent in the proximal ureter. I then advanced via the stent a Sensor wire coiling it within the upper pole calyx of the left kidney. I then reinserted the cystoscope and used a 5-Guinean ureteral access catheter to pass a Bentson guidewire alongside the indwelling safety wire coiling it within the upper pole calyx of the left kidney as well. Over the Bentson guidewire, I pa ssed a 12 x 14 Guinean ureteral access sheath into the UPJ region and then passed the flexible uretero scope over the Bentson guidewire into the upper pole of the kidney. I then surveyed back into the re nal pelvis where I encountered the bulk of the stone burden and so I utilized a 272 nm laser fiber to begin fragmentation. Initially starting with a power of 1 joule and 15 hertz, I began fragmenting t he stone, but fragmentation was incredibly slow due to the hard nature of the stone. As a result, I increased the power initially to 1.2 joules with slight improvement before increasing the power to 1. 5 joules, at which point, adequate fragmentation was being achieved. I fragmented the bulk of the la rge stone burden in the renal pelvis into dust, but some smaller fragments off the main bundle did em anate into the mid lower pole calices. So I followed those fragments into each of the calyces within the mid pole and the lower pole of the kidney fragmenting each of them into dust size of the laser f iber, but less than a millimeter. Extensive lithotripsy was performed using over 41 joules of power as I increased the fragmentation rate to 25 at several points to try to further decrease the size of the stones. I surveyed the remaining stone burden intermittently throughout the process using spot f luoroscopic imagery and ensured to navigate the ureteroscope into each of those areas targeting that stone burden and ensuring everything that was visible ureteroscopically was dust at least smaller oly n a millimeter in size. So, after extensive fragmentation had been performed and no significant resi dual size calculi were visible, I then gently irrigated the collecting system with 10 to 15 cc of nor mal saline and attempted to aspirate some of the stone dust and blood from within the collecting syst em. Eventually, all significant stone burden visible had been fragmented, but the amount of hematuri a was making visualization more difficult; so after approximately 55 minutes of direct laser lithotri psy time with a total of approximately 1 hour and 15 minutes to 1 hour and 30 minutes of ureteroscopy time had elapsed, I then discontinued further episodes of laser lithotripsy and ureteroscopy. I gretel s backed the ureteral access sheath down into the mid proximal ureter and injected a 70:30 mixture of Omnipaque and saline to perform a retrograde pyelogram. Left retrograde pyelography: Using that 70:30 mixture of Omnipaque and saline, contrast was injected via the lumen of the ureteral access sheath plate positioned just distal to the UPJ and did surpass the UPJ and enter the renal pelvis and calyces with no extravasation noted and no evidence of any inj ury. As a result, I backed the ureteral access sheath all the way down into the distal ureter and ag ain injected contrast to ensure no injury along the remainder of the ureter, and once I confirmed no extravasation seen, I then removed the ureteral access sheath in its entirety. I then backloaded the cystoscope over the indwelling safety wire and passed a 6 Guinean x 24 cm double-J ureteral stent wit h a coil observed fluoroscopically in the upper pole calyx and one cystoscopically formed in her blad ankush. I then decompressed her bladder of fluid and urine, and we collected a significant quantity of stone dust from the tract. She was then taken out of the lithotomy position, awakened from general a nesthesia, transferred to a stretcher, and then transferred to the recovery room in good condition. Complications: None. Discharge Disposition: I would like for her to continue on antimicrobial therapy for the next 5 days while any tissue trauma has an opportunity to heal, so she does not develop any symptoms of pyelonep hritis. To that end, I will send a prescription for Augmentin which she should take twice daily for the next 5 days instead of the Macrobid. After that time, she may resume the once daily Macrobid pro phylactic dosing and I sent a refill to her pharmacy. I would subsequently like her to obtain a KUB after about 2 weeks postoperatively has elapsed, and I would see her back thereafter, hopefully withi n the next 3 to 4 weeks in order to review the results of the KUB and determine if we can remove the stent or if additional residual stone burden merits additional shockwave lithotripsy. LANI/MODL Voice ID: [id number] Report ID: [id number]
[2023-09-24 16:31] VITALS: BP 121/77; TEMP 97.9; O2SAT 99
== END 2023-09-24 13:35 | disposition home or self-care (01) ==
LOC: OR 08:44
PROVIDERS: ATTEND Urology
PROC: 0TF4XZZ Fragmentation in Left Kidney Pelvis, External Approach (ICD-10-PCS; 2023-09-24)
PROC: 0T778DZ Dilation of Left Ureter with Intraluminal Device, Via Natural or Artificial Opening Endoscopic (ICD-10-PCS; principal; 2023-09-24 09:30)
DX: N20.0 Calculus of kidney (principal); R39.9 Unspecified symptoms and signs involving the genitourinary system; T83.84XA Pain due to genitourinary prosthetic devices, implants and grafts, initial encounter; N39.0 Urinary tract infection, site not specified
CPT/HCPCS: 50590; 52332; 52351; 87088; 87086; 88300; 87077; 87186; 74450; 51610; J2550; J2704; J2710; J2001; J1580; J2250; J3010; J1170; J2405 ×2; J0290; J7120